=== PATIENT | female | born 1970 | race Asian ===

== ENCOUNTER 2018-07-01 19:00 | Emergency (ER) | payer OTHER ==
[~2018-07-01] VITALS: Ht 147.3 cm; Wt 52.3 kg
[2018-07-01] MEDS ORDERED: KETOROLAC TROMETHAMINE 30 MG/ML VIAL IM ONE (19:45)
[2018-07-01 21:31] VITALS: BP 145/98
== END 2018-07-01 22:12 | disposition home or self-care (01) ==
LOC: EMS 19:02
DX: M54.2 Cervicalgia (principal); M43.6 Torticollis; I10 Essential (primary) hypertension
CPT/HCPCS: 96372; 99283; J1885